=== PATIENT | male | born 1955 | race Caucasian/White ===

== ENCOUNTER 2022-02-03 11:37 | Outpatient (CLI) | payer MEDICARE, BC, SELFPAY ==
--- NOTE | 2022-02-03 13:30 | W.ANESCHARGE ---
Anesthesia Charges Start Date/Time Anesthesia Start Date: 02/03/22 Anesthesia Start Time: 12:34 Stop Date/Time Anesthesia Stop Date: 02/03/22 Anesthesia Stop Time: 13:22 Summary Emergency: No
--- NOTE | 2022-02-03 15:07 | W.ANESCHARGE ---
Anesthesia Charges Start Date/Time Anesthesia Start Date: 02/03/22 Anesthesia Start Time: 12:34 Stop Date/Time Anesthesia Stop Date: 02/03/22 Anesthesia Stop Time: 13:22 Summary Emergency: No
== END 2022-02-03 11:38 | disposition home or self-care (01) ==
PROVIDERS: PCP Physician Assistant Medical; Visit Provider Surgery
DX: Z12.11 Encounter for screening for malignant neoplasm of colon (principal); K63.5 Polyp of colon; K57.30 Diverticulosis of large intestine without perforation or abscess without bleeding; K64.4 Residual hemorrhoidal skin tags; Z86.010 Personal history of colon polyps
CPT/HCPCS: 00811; 45385; 88305; J2704

== ENCOUNTER 2025-03-18 09:57 | Outpatient (CLI) | payer MEDICARE, BC, SELFPAY ==
--- NOTE | 2025-03-18 11:45 | P.ANES_ITS ---
Anesthesia Charges Start Date/Time Anesthesia Start Date: 03/18/25 Anesthesia Start Time: 10:52 Stop Date/Time Anesthesia Stop Date: 03/18/25 Anesthesia Stop Time: 11:35 Coding CPT Codes CPT Codes: MONTY LWR INTST NDSC NOS - [id number] ([id number]) P4 - PT W/SEV SYS DIS THREAT LIFE, QK - INVESTOR RELATIONS DIRECTOR 2-4 CNCRNT ANES PROC, QX - HEMATOLOGY SPECIALIST SVC W/ MD MED DIRECTION
--- NOTE | 2025-03-18 11:45 | W.ANESCHARGE ---
Anesthesia Charges Start Date/Time Anesthesia Start Date: 03/18/25 Anesthesia Start Time: 10:52 Stop Date/Time Anesthesia Stop Date: 03/18/25 Anesthesia Stop Time: 11:35 Coding CPT Codes CPT Codes: MONTY LWR INTST NDSC NOS - [id number] ([id number]) P4 - PT W/SEV SYS DIS THREAT LIFE, QK - STUDIO OPERATOR 2-4 CNCRNT ANES PROC, QX - SPRUE CUTTING PRESS OPERATOR SVC W/ MD MED DIRECTION
--- NOTE | 2025-03-18 12:23 | P.ANES_ITS ---
Anesthesia Charges Start Date/Time Anesthesia Start Date: 03/18/25 Anesthesia Start Time: 10:52 Stop Date/Time Anesthesia Stop Date: 03/18/25 Anesthesia Stop Time: 11:35 Coding CPT Codes CPT Codes: MONTY LWR INTST NDSC NOS - [id number] ([id number]) P4 - PT W/SEV SYS DIS THREAT LIFE, QK - RN BONE MARROW TRANSPLANT 2-4 CNCRNT ANES PROC, QX - WELDER METAL FAB SVC W/ MD MED DIRECTION
--- NOTE | 2025-03-18 12:23 | W.ANESCHARGE ---
Anesthesia Charges Start Date/Time Anesthesia Start Date: 03/18/25 Anesthesia Start Time: 10:52 Stop Date/Time Anesthesia Stop Date: 03/18/25 Anesthesia Stop Time: 11:35 Coding CPT Codes CPT Codes: MONTY LWR INTST NDSC NOS - [id number] ([id number]) P4 - PT W/SEV SYS DIS THREAT LIFE, QK - PHOTO MASK PATTERN GENERATOR 2-4 CNCRNT ANES PROC, QX - GAUNTLET PAIRER SVC W/ MD MED DIRECTION
== END 2025-03-18 09:58 | disposition home or self-care (01) ==
LOC: OP CLINIC 09:59
PROVIDERS: PCP Physician Assistant Medical; Visit Provider Surgery
DX: D12.2 Benign neoplasm of ascending colon (principal); D12.3 Benign neoplasm of transverse colon; D12.4 Benign neoplasm of descending colon; D12.5 Benign neoplasm of sigmoid colon; Z86.0100 Personal history of colon polyps, unspecified
CPT/HCPCS: 00811; 45385; J2704